=== PATIENT | female | born 1990 | race Caucasian/White ===

== ENCOUNTER 2016-12-28 21:58 | Emergency (ER) | payer OTHER ==
[2016-12-28 22:46] VITALS: BP 150/91
--- NOTE | 2016-12-28 23:22 | EDM.PDOC ---
ED HPI GENERAL MEDICAL PROBLEM - General Chief Complaint: General Stated Complaint: L SIDE FACE NUMB Time Seen by Provider: 12/28/16 22:49 Source of Information: Reports: Patient, Family () History Limitations: Reports: No Limitations - History of Present Illness Onset: Today Location: Reports: Head, Face Quality: Reports: Other (right sided facial droop) Severity: Mild Improves with: Reports: None Worsens with: Reports: None Associated Symptoms: Reports: No Other Symptoms - Related Data Allergies Allergy/AdvReac Type Severity Reaction Status Date / Time cat dander Allergy Itching Verified 12/28/16 22:38 Home Meds: Home Meds ClonazePAM [KlonoPIN] 0.5 mg PO DAILY PRN 12/28/16 [History] Escitalopram [Lexapro] 10 mg PO DAILY 12/28/16 [History] Past Medical History Gastrointestinal History: Reports: Inflammatory Bowel Disease Genitourinary History: Reports: None 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 Musculoskeletal History: Reports: None Neurological History: Reports: None Psychiatric History: Reports: Anxiety Endocrine/Metabolic History: Reports: None Hematologic History: Reports: Anemia Immunologic History: Reports: None Oncologic (Cancer) History: Reports: None Dermatologic History: Reports: None - Past Surgical History GI Surgical History: Reports: Hernia Repair/Other Neurological Surgical History: Reports: None Social & Family History - Tobacco Use Smoking Status *Q: Current Every Day Smoker Years of Tobacco use: 10 Packs/Tins Daily: 0.7 - Caffeine Use Caffeine Use: Reports: Coffee - Alcohol Use Days Per Week of Alcohol Use: 2 Number of Drinks Per Day: 2 Total Drinks Per Week: 4 - Recreational Drug Use Recreational Drug Use: Yes Recreational Drug Type: Reports: Marijuana/Hashish Recreational Drug Use Frequency: Socially - Living Situation & Occupation Living situation: Reports: with Significant Other Occupation: Employed (lives in [place], [place], here in the area visiting.) ED ROS GENERAL - Review of Systems Review Of Systems: See Below Constitutional: Reports: Other (right sided facial droop. denies any recent or remote injury to head.) HEENT: Reports: Eye Pain (not painful, but right twitches, doesnot close completely.), Vertigo (once, not at this time), Other Respiratory: Reports: No Symptoms Cardiovascular: Reports: No Symptoms Endocrine: Reports: No Symptoms GI/Abdominal: Reports: No Symptoms : Reports: No Symptoms Musculoskeletal: Reports: No Symptoms Skin: Reports: No Symptoms Neurological: Reports: Numbness (right side of face), Paresthesia (right), Tingling (right side of face), Weakness (right side of face) Psychiatric: Reports: No Symptoms, Anxiety (hx of anxiety) Hematologic/Lymphatic: Reports: No Symptoms Immunologic: Reports: No Symptoms ED EXAM, GENERAL - Physical Exam Exam: See Below Exam Limited By: No Limitations General Appearance: Alert, WD/WN, No Apparent Distress, Other (mild right sided facial droop. eyebrow reflex intact. ) Eye Exam: Bilateral Eye: PERRL, Other (right eye lid lag noted) Ears: Normal External Exam, Normal Canal, Hearing Grossly Normal, Normal TMs Ear Exam: Bilateral Ear: Auricle Normal, Canal Normal, TM normal Nose: Normal Inspection, Normal Mucosa, No Blood Throat/Mouth: Normal Inspection, Normal Lips, Normal Teeth, Normal Gums, Normal Oropharynx, Normal Voice, No Airway Compromise Head: Atraumatic, Normocephalic, Other (right cheek, rigth side of lips with asymmetric, droop) Neck: Normal Inspection, Supple, Non-Tender, Full Range of Motion Respiratory/Chest: No Respiratory Distress, Lungs Clear, Normal Breath Sounds, No Accessory Muscle Use, Chest Non-Tender Cardiovascular: Normal Peripheral Pulses, Regular Rate, Rhythm, No Edema, No Gallop, No JVD, No Murmur, No Rub GI/Abdominal: Normal Bowel Sounds, Soft, Non-Tender, No Organomegaly, No Distention, No Abnormal Bruit, No Mass (Female) Exam: Deferred Rectal (Female) Exam: Deferred Back Exam: Normal Inspection, Full Range of Motion, NT Extremities: Normal Inspection, Normal Range of Motion, Non-Tender, Normal Capillary Refill, No Pedal Edema Neurological: Alert, Oriented, Normal Cognition, Normal Gait, Normal Reflexes, Other (right sided facial droop from eyelid to jaw.) Psychiatric: Normal Affect, Normal Mood Skin Exam: Warm, Dry, Intact, Normal Color, No Rash Lymphatic: No Adenopathy Course - Vital Signs Last Recorded V/S: Last Vital Signs Temp 36.4 C 12/28/16 22:43 Pulse 77 12/28/16 22:43 Resp 15 12/28/16 22:43 BP 150/91 H 12/28/16 22:43 Pulse Ox 97 12/28/16 22:43 - Orders/Labs/Meds Meds: Medications Discontinued Medications Generic Name Dose Route Start Last Admin Trade Name Fabrice NICOLE Reason Stop Dose Admin Doxycycline Hyclate 100 mg 12/28/16 23:23 12/28/16 23:42 Vibramycin PO 12/28/16 23:24 100 mg ONETIME ONE Administration Prednisone 40 mg 12/28/16 23:23 12/28/16 23:43 Prednisone PO 12/28/16 23:24 40 mg ONETIME ONE Administration Departure - Departure Time of Disposition: 23:48 Disposition: Home, Self-Care 01 Condition: Good Clinical Impression: Right-sided Aguayo's palsy - Discharge Information Instructions: Aguayo Palsy Referrals: PCP,None [Primary Care Provider] - Forms: ED Department Discharge Care Plan Goals: right sided Aguayo's Palsy -Prednisone dose pack as directed -Doxy 100mg po bid x 14 days -motrin or tylenol for pain or fever will need recheck with Primary Care with in 7 days return to ED for extending of numbness, nausea, vomiting, rash, fever, chills, headache, loss of balance or any concerns. - Problem List & Annotations (1) Right-sided Aguayo's palsy SNOMED Code(s): 413537525 Code(s): G51.0 - AGUAYO'S PALSY Status: Acute Priority: High - Problem List Review Problem List Initiated/Reviewed/Updated: Yes - Assessment/Plan Plan: right sided Aguayo's Palsy -Prednisone dose pack as directed -Doxy 100mg po bid x 14 days -motrin or tylenol for pain or fever will need recheck with Primary Care with in 7 days return to ED for extending of numbness, nausea, vomiting, rash, fever, chills, headache, loss of balance or any concerns
[2016-12-28] MEDS ORDERED: predniSONE 20 MG Tab PO ONE (23:23)
[2016-12-28] MEDS ORDERED: Doxycycline 100 MG Cap PO ONE (23:23)
== END 2016-12-28 23:48 | disposition home or self-care (01) ==
LOC: JP.ED 21:58
DX: G51.0 Bell's palsy (principal); F17.210 Nicotine dependence, cigarettes, uncomplicated; Z98.890 Other specified postprocedural states; Z86.2 Personal history of diseases of the blood and blood-forming organs and certain disorders involving the immune mechanism; Z79.899 Other long term (current) drug therapy; Z91.048 Other nonmedicinal substance allergy status
CPT/HCPCS: 99284; A9270

== ENCOUNTER 2021-11-18 19:15 | Emergency (ER) | payer OTHER ==
[2021-11-18 19:29] VITALS: BP 138/83; PULSE 130
[2021-11-18 20:18] LABS: CORONAVIRUS COVID-19 NAA POSITIVE (NEGATIVE)
[2021-11-18] MEDS ORDERED: Ibuprofen 600 MG Tab PO ONE (20:24)
[2021-11-18 20:59] LABS: ESTIMATED GFR 100 mL/min (>60)
[2021-11-18] MEDS ORDERED: Ondansetron 4 MG Tab.DIS PO ONE (21:14)
== END 2021-11-18 21:35 | disposition home or self-care (01) ==
LOC: JP.ED 19:15
DX: U07.1 COVID-19 (principal); Z91.09 Other allergy status, other than to drugs and biological substances
CPT/HCPCS: 0241U; 36415; 80053; 85025; 85379; 99284; A9270; Q0162